=== PATIENT | female | born 1970 ===

== ENCOUNTER → 2020-10-26 | Outpatient (CLI) | payer BC, OTHER ==
[~2020-10-26] MED LIST: AMARYL 2MG TABLE2 MG PO; AMLODIPINE BESY10 MG PO; ASPIRIN325 MG PO; CLINDAMYCIN HC300 MG PO; CYMBALTA30 MG PO; FLEXERIL 10 MG10 MG PO; HUMALOG100 UNIT/3 SC; IBUPROFEN800 MG PO; LANTUS SOL100 UNIT/1 SQ; LOSARTAN POTAS100 MG PO; NORVASC 5 MG TAB5 MG PO; PANTOPRAZOLE SO40 MG PO; PERCOCET 10-321 EACH PO; PROTONIX 40 MG40 M1 PO; SPIRONOLACTONE50 MG PO; TRULICITY0.75 MG/0. SQ; VITAMIN C500 M4 PO
== END ==
LOC: KOH-I 11:10
DX: M79.672 Pain in left foot (principal)
CPT/HCPCS: 73630

== ENCOUNTER → 2020-11-08 | Outpatient (CLI) | payer BC, OTHER | LOC: KOH-I 11-06 14:30 | DX: Z01.818 Encounter for other preprocedural examination (principal) | CPT/HCPCS: 93926 ==

== ENCOUNTER → 2020-12-14 | Outpatient (CLI) | payer BC, OTHER ==
[2020-12-14 10:16] LABS: HEMOGLOBIN 14.4 gm/dl (12.3-15.3); RED BLOOD COUNT 5.01 M/UL (4.00-5.10); WHITE BLOOD COUNT 10.5 K/UL (4.5-11.0)
[2020-12-14 10:36] LABS: BUN/CREATININE RATIO 20 (0-10)
== END ==
LOC: OPSV2 09:00
PROVIDERS: Podiatrist Foot & Ankle Surgery
DX: Z01.812 Encounter for preprocedural laboratory examination (principal); Z01.810 Encounter for preprocedural cardiovascular examination; M19.079 Primary osteoarthritis, unspecified ankle and foot; E11.9 Type 2 diabetes mellitus without complications; I10 Essential (primary) hypertension
CPT/HCPCS: 36415; 80048; 83036; 85027; 93005

== ENCOUNTER 2020-12-29 07:07 | Observation (INO) | payer BC, OTHER ==
[~2020-12-29] VITALS: Ht 170.2 cm; Wt 123.8 kg
[~2020-12-29 07:07] MED LIST changes: -AMLODIPINE BESY10 MG PO; -HUMALOG100 UNIT/3 SC; -LANTUS SOL100 UNIT/1 SQ; -PROTONIX 40 MG40 M1 PO; -SPIRONOLACTONE50 MG PO
[2020-12-29 07:53] LABS: HEMOGLOBIN 13.3 gm/dl (12.3-15.3); RED BLOOD COUNT 4.7 M/UL (4.00-5.10); WHITE BLOOD COUNT 9.8 K/UL (4.5-11.0)
[2020-12-29 08:04] LABS: BUN/CREATININE RATIO 19 (0-10)
[2020-12-29] MEDS ORDERED: SPIRONOLACTONE50 MG PO (08:53)
[2020-12-29] MEDS ORDERED: LANTUS SOL100 UNIT/1 SQ (08:54)
[2020-12-29] MEDS ORDERED: AMLODIPINE BESY10 MG PO (08:55)
[2020-12-29] MEDS ORDERED: PROTONIX 40 MG40 M1 PO (08:55)
[2020-12-29] MEDS ORDERED: HUMALOG100 UNIT/3 SC (08:55)
[2020-12-29] MEDS ORDERED: PERCOCET 10-321 EACH PO ×2 (19:57→20:00)
[2020-12-30 03:54] LABS: HEMOGLOBIN 13.6 gm/dl (12.3-15.3); RED BLOOD COUNT 4.77 M/UL (4.00-5.10)
[2020-12-30 03:55] LABS: WHITE BLOOD COUNT 15.9 K/UL (4.5-11.0)
[2020-12-30 04:28] LABS: BUN/CREATININE RATIO 18 (0-10)
== END 2020-12-30 16:01 | disposition home or self-care (01) ==
LOC: OR 07:07 → M/S 19:22 → OR 20:50 → M/S 12-30 16:01
PROVIDERS: Podiatrist Foot & Ankle Surgery; ADMIT Internal Medicine
DX: M21.42 Flat foot [pes planus] (acquired), left foot (principal); M25.372 Other instability, left ankle; S86.112A Strain of other muscle(s) and tendon(s) of posterior muscle group at lower leg level, left leg, initial encounter; D17.24 Benign lipomatous neoplasm of skin and subcutaneous tissue of left leg; M67.472 Ganglion, left ankle and foot; M19.072 Primary osteoarthritis, left ankle and foot; E11.42 Type 2 diabetes mellitus with diabetic polyneuropathy; E11.65 Type 2 diabetes mellitus with hyperglycemia; I10 Essential (primary) hypertension; M10.9 Gout, unspecified; E78.5 Hyperlipidemia, unspecified; E66.2 Morbid (severe) obesity with alveolar hypoventilation; D72.829 Elevated white blood cell count, unspecified; G43.909 Migraine, unspecified, not intractable, without status migrainosus; Z68.41 Body mass index [BMI] 40.0-44.9, adult; Z88.1 Allergy status to other antibiotic agents; Z88.8 Allergy status to other drugs, medicaments and biological substances; Z91.040 Latex allergy status; Z79.4 Long term (current) use of insulin; Z79.899 Other long term (current) drug therapy; X58.XXXA Exposure to other specified factors, initial encounter
CPT/HCPCS: 36415; 73610; 73630; 76000; 80048; 80053; 82550; 82553; 82962; 83605; 84439; 84443; 84484; 85027; 85652; 86140; 96372; 96375; 96376; C1713; C1762; G0378; J0171; J0690; J1100; J1650; J1885; J2001; J2250; J2270; J2405; J2704; J2710; J2795; J3010; J3370; J7030; J7120; Q4133

== ENCOUNTER → 2021-01-16 | Outpatient (CLI) | payer BC, OTHER ==
[~2021-01-16] MED LIST changes: +AMLODIPINE BESY10 MG PO; +HUMALOG100 UNIT/3 SC; +LANTUS SOL100 UNIT/1 SQ; +PROTONIX 40 MG40 M1 PO; +SPIRONOLACTONE50 MG PO
== END ==
LOC: KOH-I 15:30
DX: M24.672 Ankylosis, left ankle (principal); Z47.89 Encounter for other orthopedic aftercare; Z98.1 Arthrodesis status
CPT/HCPCS: 73610

== ENCOUNTER → 2021-02-06 | Outpatient (CLI) | payer BC, OTHER | LOC: KOH-I 14:05 | DX: Z47.89 Encounter for other orthopedic aftercare (principal); Z98.1 Arthrodesis status | CPT/HCPCS: 73630 ==

== ENCOUNTER → 2021-02-27 | Outpatient (CLI) | payer BC, OTHER | LOC: KOH-I 11:07 | DX: M79.672 Pain in left foot (principal); Z98.890 Other specified postprocedural states | CPT/HCPCS: 73630 ==

== ENCOUNTER → 2021-03-20 | Outpatient (CLI) | payer BC, OTHER | LOC: KOH-I 10:53 | DX: M79.672 Pain in left foot (principal) | CPT/HCPCS: 73630 ==

== ENCOUNTER → 2021-04-12 | Outpatient (CLI) | payer BC | LOC: KOH-I 10:12 | DX: M79.672 Pain in left foot (principal); M19.072 Primary osteoarthritis, left ankle and foot | CPT/HCPCS: 73630 ==

== ENCOUNTER → 2021-05-14 | Outpatient (CLI) | payer BC | LOC: KOH-I 10:16 | DX: S92.102D Unspecified fracture of left talus, subsequent encounter for fracture with routine healing (principal) | CPT/HCPCS: 73630 ==

== ENCOUNTER → 2021-06-05 | Outpatient (CLI) | payer BC | LOC: KOH-I 11:03 | DX: M79.672 Pain in left foot (principal) | CPT/HCPCS: 73630 ==

== ENCOUNTER → 2021-07-05 | Outpatient (CLI) | payer BC | LOC: KOH-I 09:53 | DX: M79.672 Pain in left foot (principal) | CPT/HCPCS: 73630 ==

== ENCOUNTER → 2021-08-06 | Outpatient (CLI) | payer BC | LOC: KOH-I 10:51 | DX: M79.672 Pain in left foot (principal) | CPT/HCPCS: 73630 ==

== ENCOUNTER → 2021-10-08 | Outpatient (CLI) | payer BC | LOC: KOH-I 10:45 | DX: M79.671 Pain in right foot (principal) | CPT/HCPCS: 73610 ==

== ENCOUNTER → 2022-04-23 | Outpatient (CLI) | payer BC ==
[~2022-04-23] MED LIST changes: +JARDIANCE25 MG PO; +NORVASC10 MG PO; +NOVOLOG100 UNIT/1 SQ; +PROTONIX40 MG PO
[2022-04-23 14:10] LABS: HEMOGLOBIN 14.2 gm/dl (12.3-15.3); RED BLOOD COUNT 5.19 M/UL (4.00-5.10); WHITE BLOOD COUNT 9.2 K/UL (4.5-11.0)
== END ==
LOC: OPSV2 12:30
PROVIDERS: Podiatrist Foot & Ankle Surgery
DX: Z01.818 Encounter for other preprocedural examination (principal)
CPT/HCPCS: 36415; 80048; 85027; 93005

== ENCOUNTER → 2022-05-13 | Outpatient (CLI) | payer BC ==
[~2022-05-13] MED LIST changes: +PEPCID40 MG PO; +PLAQUENIL200 MG PO; +TRESIBA FL100 UNIT/1 SQ; +TYLENOL325 M1 PO; +VITAMIN D31250 MCG PO; +ZANAFLEX4 MG PO
== END ==
LOC: KOH-I 09:29
DX: M25.572 Pain in left ankle and joints of left foot (principal); M79.672 Pain in left foot; Z98.1 Arthrodesis status
CPT/HCPCS: 73610; 73630

== ENCOUNTER → 2022-05-27 | Outpatient (CLI) | payer BC | LOC: KOH-I 09:27 | DX: M79.672 Pain in left foot (principal); Z98.1 Arthrodesis status | CPT/HCPCS: 73620 ==

== ENCOUNTER → 2022-06-10 | Outpatient (CLI) | payer BC | LOC: KOH-I 10:40 | DX: M79.672 Pain in left foot (principal) | CPT/HCPCS: 73630 ==

== ENCOUNTER → 2022-06-24 | Outpatient (CLI) | payer BC | LOC: KOH-I 11:09 | DX: M79.672 Pain in left foot (principal) | CPT/HCPCS: 73630 ==